=== PATIENT | male | born 1970 | race Caucasian/White ===

== ENCOUNTER 2021-06-14 12:04 | Emergency (ER) | payer SELFPAY ==
[~2021-06-14] VITALS: Ht 175.3 cm; Wt 70.0 kg
[2021-06-14] MEDS ORDERED: HYDROCODONE/ACETAMINOPHEN 5/325MG TABLET PO ONE (12:30)
[2021-06-14] MEDS ORDERED: IBUPROFEN 400MG TABLET PO ONE (12:30)
[2021-06-14] MEDS ORDERED: IBUP-2028 MT (14:58)
[2021-06-14] MEDS ORDERED: HYDR-4001 MT (14:58)
[2021-06-14 15:15] VITALS: BP 139/85
== END 2021-06-14 15:24 | disposition home or self-care (01) ==
LOC: ER 12:24
DX: S00.212A Abrasion of left eyelid and periocular area, initial encounter (principal); M54.2 Cervicalgia; M54.89 Other dorsalgia; M25.512 Pain in left shoulder; M25.552 Pain in left hip; V43.52XA Car driver injured in collision with other type car in traffic accident, initial encounter; Y93.89 Activity, other specified; Y92.488 Other paved roadways as the place of occurrence of the external cause
CPT/HCPCS: 72070; 72100; 73030; 73502; 99285